=== PATIENT | male | born 2000 | race Hispanic/Latino ===

== ENCOUNTER 2022-07-11 14:29 | Emergency (ER) | payer OTHER ==
[~2022-07-11] VITALS: Ht 165.1 cm; Wt 70.8 kg
[2022-07-11] MEDS ORDERED: IBUP-2070 PO (15:49)
[2022-07-11] MEDS ORDERED: ACET-2247 PO (15:49)
[2022-07-11] MEDS ORDERED: AMOX1TAB16 PO (15:49)
[2022-07-11] MEDS ORDERED: CEFTRIAXONE 1G VIAL IM ONE (16:00)
[2022-07-11 16:06] VITALS: BP 116/64
== END 2022-07-11 16:11 | disposition home or self-care (01) ==
LOC: EDH 14:29
DX: J02.0 Streptococcal pharyngitis (principal); Z20.822 Contact with and (suspected) exposure to COVID-19; F41.9 Anxiety disorder, unspecified; F32.A Depression, unspecified; Z79.1 Long term (current) use of non-steroidal anti-inflammatories (NSAID)
CPT/HCPCS: 99283; 87635; 87880; 87804 ×2; 96372; C9803; J0696

== ENCOUNTER 2022-12-14 23:02 | Emergency (ER) | payer OTHER ==
[~2022-12-14] VITALS: Ht 165.1 cm; Wt 68.0 kg
[~2022-12-14 23:02] MED LIST: ACET-2247 PO; AMOX1TAB16 PO; IBUP-2070 PO
[2022-12-14 23:04] VITALS: BP 120/72
[2022-12-14] MEDS ORDERED: LIDOCAINE HCL 1% 20 ML VIAL SCH (23:30)
[2022-12-14] MEDS ORDERED: CEPH500B PO (23:40)
[2022-12-14] MEDS ORDERED: IBUP-2077 PO (23:40)
[2022-12-15] MEDS ORDERED: CEPHALEXIN 500 MG CAPSULE PO ONE
== END 2022-12-14 23:58 | disposition home or self-care (01) ==
LOC: EDH 23:02
DX: S56.127A Laceration of flexor muscle, fascia and tendon of right little finger at forearm level, initial encounter (principal); F41.9 Anxiety disorder, unspecified; F31.9 Bipolar disorder, unspecified; Z79.899 Other long term (current) drug therapy; W26.0XXA Contact with knife, initial encounter; Y93.G3 Activity, cooking and baking; Y92.89 Other specified places as the place of occurrence of the external cause; Y99.8 Other external cause status
CPT/HCPCS: 12001